=== PATIENT | female | born 1935 ===

== ENCOUNTER → 2019-11-22 | Outpatient (CLI) | payer MEDICARE, MEDICAID ==
[2019-11-22 14:11] LABS: Basophils # (auto) 0 10 ^3/uL (0-0.2); Eosinophils # (auto) 0.1 10 ^3/uL (0-0.8); Lymphocytes # (auto) 1.1 10 ^3/uL (0.4-5.4); Monocytes # (auto) 0.4 10 ^3/uL (0-1.3); Monocytes % (auto) 13.7 % (0.0-12.0); Nucleated Red Blood Cells % 0.1 %
[2019-11-22 14:14] LABS: Hematocrit 31.8 % (36.0-46.0); Hemoglobin 10.8 g/dL (12.2-16.2); Lymphocytes % (auto) 36.3 % (10.0-50.0); Mean Corpuscular Hemoglobin 35.7 pg (28.0-32.0); Mean Corpuscular Volume 104.9 fL (80.0-100.0); Neutrophils # (auto) 1.3 10 ^3/uL (1.6-8.6); Platelet Count (auto) 64 10^3/uL (140-450); Red Blood Cells 3.03 10^6/uL (4.0-5.20); Red Cell Distribution Width 15.7 % (11.8-14.3)
[2019-11-22 14:26] LABS: INR 1.4 (0.9-1.15)
[2019-11-22 14:43] LABS: Potassium 5.2 mmol/L (3.5-5.1)
[2019-11-22 14:50] LABS: Albumin 2.3 g/dL (3.4-5.0); BUN/Creatinine Ratio 23.9; Bilirubin, Total 1.7 mg/dL (0.2-1.0); Calcium 8.4 mg/dL (8.5-10.1); Total Protein 6.3 g/dL (6.4-8.2)
== END | disposition home or self-care (01) ==
LOC: LAB 13:45
PROVIDERS: ATTEND Internal Medicine
DX: C22.8 Malignant neoplasm of liver, primary, unspecified as to type (principal); M06.9 Rheumatoid arthritis, unspecified
CPT/HCPCS: 36415; 80053; 82105; 85025; 85610; 85730

== ENCOUNTER 2020-05-03 15:19 | Inpatient (IN) | payer MEDICARE, MEDICAID ==
[~2020-05-03] VITALS: Ht 139.7 cm; Wt 65.3 kg
[2020-05-03] MEDS ORDERED: SODIUM CHLORIDE 0.9% 1,000 ML IV ONE (15:30)
[2020-05-03] MEDS ORDERED: PIPERACILLIN-TAZOB 3.375GM 100 ML IV ONE (16:00)
[2020-05-03 18:38] LABS: Basophils # (auto) 0 10 ^3/uL (0-0.2); Basophils % (auto) 0.9 % (0.0-2.0); Eosinophils # (auto) 0.1 10 ^3/uL (0-0.8); Eosinophils % (auto) 1.5 % (0.0-7.0); Hematocrit 29.7 % (36.0-46.0); Hemoglobin 10.1 g/dL (12.2-16.2); Lymphocytes # (auto) 1.5 10 ^3/uL (0.4-5.4); Lymphocytes % (auto) 32.4 % (10.0-50.0); Mean Corpuscular Hemoglobin 34.5 pg (28.0-32.0); Mean Corpuscular Hgb Conc. 33.9 g/dL (32.0-36.0); Mean Corpuscular Volume 101.8 fL (80.0-100.0); Monocytes # (auto) 0.8 10 ^3/uL (0-1.3); Monocytes % (auto) 16.3 % (0.0-12.0); Neutrophils # (auto) 2.3 10 ^3/uL (1.6-8.6); Neutrophils % (auto) 48.9 % (37.0-80.0); Nucleated Red Blood Cells % 0.3 %; Platelet Count (auto) 89 10^3/uL (140-450); Red Blood Cells 2.92 10^6/uL (4.0-5.20); Red Cell Distribution Width 16.1 % (11.8-14.3); White Blood Cell 4.6 10^3/uL (4.4-10.8)
[2020-05-03 18:51] LABS: INR 1.51 (0.9-1.15); Partial Thromboplastin Time 33.6 sec (23.0-31.2)
[2020-05-03 18:56] LABS: Albumin 1.9 g/dL (3.4-5.0); BUN/Creatinine Ratio 11.1; Calcium 8.7 mg/dL (8.5-10.1)
[2020-05-03] MEDS ORDERED: NITROGLYCERIN 0.4 MG SL TAB SL PRN (19:00)
[2020-05-03] MEDS ORDERED: MORPHINE SULF INJ 2 MG/ML SYRINGE 1ML IV PRN ×2 (19:00→19:15)
[2020-05-03 19:01] LABS: Bilirubin, Total 2.6 mg/dL (0.2-1.0); Lactic Acid w/Reflex 2.9 mmol/L (0.4-2.0); Total Protein 6.3 g/dL (6.4-8.2)
[2020-05-03] MEDS ORDERED: cefTRIAXone 1GM/50ML D5W 50 ML IV ONE (19:15)
[2020-05-03] MEDS ORDERED: traMADol HCL 50 MG TAB PO PRN (19:15)
[2020-05-03] MEDS ORDERED: ONDANSETRON HCL 4 MG/2 ML VIAL IV PRN (19:15)
[2020-05-03] MEDS: FUROSEMIDE 40 MG/4 ML VIAL IV SCH (20:06)
--- NOTE | 2020-05-03 21:30 | NUR ---
Telemetry admit from ER SANGITA ALMAGUER admitted to Telemetry unit after NO SBAR received FROM ER NURSE. Report is from computer chart. Patient oriented to Srinath gongora RN, [facility] unit, 279 room, A bed, and unit policies regarding patient care and visiting hours. Patient now on continuous telemetry monitoring, tele box # 71 and telemetry reading on arrival to unit is sinus rhythm. Patient placed on bedside oxygen, weighed by bedscale and encouraged to call if they need something. All questions and concerns addressed, patient verbalized understanding. Note:
--- NOTE | 2020-05-03 21:31 | NUR ---
Belonging list: blouse/dentures full upper and lower/ pants/ sweater/ hat/ socks/ and wheel chair are physically here in patient room in 279a.
[2020-05-03] MEDS ORDERED: FAMOTIDINE 20 MG TAB PO SCH (22:00)
[2020-05-03] MEDS ORDERED: DOXYCYCLINE 100 MG TAB/CAP PO SCH (22:00)
[2020-05-03 22:09] VITALS: BP 115/51
--- NOTE | 2020-05-03 23:00 | NUR ---
Patient daughter requested that I provide pain medication to patient due to patient having pain in knee area recently. Asked patient if she has any pain in legs, knees, or anywhere. Patient verbally denies any pain, distress, or sob at this time, also denies any pain in epigastric/abdomen and never has had any pain in abdomen. Patient verbally refuses any type of pain medication at this time, per patient does not have any pain. Patient appears resting comfortably in bed with no signs of distress. Did educate patient, she does have pain medication ordered and available PRN if she has any pain with pain parameters as ordered by MD. patient verbally acknowledge education given. Call light with in reach. and educated patient on how to use call light.
[2020-05-03] MEDS: SUCRALFATE 1 GM/10 ML ORAL SUSP PO SCH (23:05)
[2020-05-03] MEDS: PANTOPRAZOLE 40 MG TAB PO SCH (23:07)
--- NOTE | 2020-05-03 23:30 | NUR ---
EGD: Patient daughter refuses to have patient proceed with EGD tomorrow as scheduled by MD Antony. Daughter wants to talk to MD Antony of EGD procedure and wants to be updated on Plan of care. Daughter states "my mom does not have pain in abdomen or lower chest area, do not know why she is having this procedure, I want to have doctor talk to me first about procedure, my mom has dementia, forgetful and is often confused". Patient daughter wanted me to explain in detail of EGD procedure, educated patient, not my scope of practice, and MD has to do that. Patient daughter verbally acknowledge education. Later daughter changed mind of procedure and wanted to proceed, then change her mind again about procedure, and now wants clarification. Will leave note on physical chart and will endorse to day RN of patient daughter does not want to proceed with procedure till she speaks to MD. Spoke to patient about EGD tomorrow and about pain in abdomen. Patient verbally stated "I did not speak to any doctor about any procedures today and no I do not have any pain in my abdomen, I dont know what your talking about". Will continue to monitor patient. bed alarm on, brakes on, call light within reach, and charge made aware.
--- NOTE | 2020-05-03 23:30 | NUR ---
Vaccinations/code status: Patient requested to be full code, did confirm with daughter patient is full code. patient and daughter refused pneumonia and flu vaccination at this time, education given. daughter/patient not aware of past vaccination history.
--- NOTE | 2020-05-03 23:30 | NUR ---
per patient daughter, patient has been discharged from hospital in last thirty days, per protocol, mrsa swab ordered.
[2020-05-03 23:47] LABS: Urine Bacteria FEW /hpf (None Seen); Urine Blood TRACE /uL (Negative); Urine Specific Gravity 1.006 (1.001-1.035); Urine WBC 1 /hpf (0 - 5)
[2020-05-04] MEDS ORDERED: METO-169 PO (02:56)
[2020-05-04] MEDS ORDERED: FOLI1TAB6 PO (02:56)
[2020-05-04] MEDS ORDERED: MAGN400T40 PO (02:56)
[2020-05-04] MEDS ORDERED: LACT10PA2 PO (02:56)
[2020-05-04] MEDS ORDERED: NYS5LQ MT (02:56)
[2020-05-04] MEDS ORDERED: SPIR50TA5 PO (02:56)
[2020-05-04] MEDS ORDERED: FURO40TA4 PO (02:56)
[2020-05-04] MEDS ORDERED: CALCTAB25 PO (02:56)
[2020-05-04 05:16] VITALS: BP 106/52
[2020-05-04] MEDS: SUCRALFATE 1 GM/10 ML ORAL SUSP PO SCH ×4 (06:59→22:00)
[2020-05-04] MEDS: SPIRONOLACTONE 25 MG TAB PO SCH ×2 (06:59→18:00)
[2020-05-04] MEDS: FUROSEMIDE 40 MG/4 ML VIAL IV SCH ×2 (06:59→18:00)
[2020-05-04 07:01] LABS: Eosinophils # (auto) 0.1 10 ^3/uL (0-0.8); Monocytes # (auto) 0.6 10 ^3/uL (0-1.3); Neutrophils # (auto) 2.1 10 ^3/uL (1.6-8.6); Nucleated Red Blood Cells % 0.3 %
[2020-05-04 07:05] LABS: Basophils # (auto) 0 10 ^3/uL (0-0.2); Basophils % (auto) 1.1 % (0.0-2.0); Eosinophils % (auto) 2.1 % (0.0-7.0); Hematocrit 27.1 % (36.0-46.0); Hemoglobin 9.4 g/dL (12.2-16.2); Lymphocytes # (auto) 1.2 10 ^3/uL (0.4-5.4); Mean Corpuscular Hgb Conc. 34.5 g/dL (32.0-36.0); Mean Corpuscular Volume 101.4 fL (80.0-100.0); Monocytes % (auto) 14.3 % (0.0-12.0); Neutrophils % (auto) 53.5 % (37.0-80.0); Platelet Count (auto) 82 10^3/uL (140-450); Red Blood Cells 2.67 10^6/uL (4.0-5.20); Red Cell Distribution Width 16.1 % (11.8-14.3)
[2020-05-04 07:21] LABS: Albumin 1.6 g/dL (3.4-5.0); Potassium 4.1 mmol/L (3.5-5.1)
[2020-05-04 07:23] LABS: BUN/Creatinine Ratio 12.8; Bilirubin, Total 2.3 mg/dL (0.2-1.0); Calcium 8.6 mg/dL (8.5-10.1); Total Protein 5.1 g/dL (6.4-8.2)
--- NOTE | 2020-05-04 07:30 | NUR ---
Opening Shift Note RECEIVED REPORT FROM NOC RN. Assumed care of patient, awake. No S/S of distress/SOB or pain. BED IN LOWEST, LOCKED POSITION WITH SIDERAILS UP x2 AND CALL LIGHT WITHIN REACH. Instructed on POC and to call for assist PRN, will continue to monitor for changes Q1hr and PRN.
--- NOTE | 2020-05-04 07:40 | NUR ---
PROVIDED REPORT TO HAKEEM HAGEN. ENDORSED EGD PROCEDURE, AND CLARIFICATION WITH MD/DAUGHTER/AND PATIENT.
[2020-05-04 08:23] VITALS: BP 107/56
[2020-05-04] MEDS ORDERED: POTASSIUM CHLORIDE 20 MEQ, LIDOCAINE 1% (LOCAL ANESTH.) 2 ML in SODIUM CHL 0.9% 100 ML IV ONE (08:30)
[2020-05-04] MEDS ORDERED: MAGNESIUM SULFATE 1GM/100ML 100 ML IV ONE (08:30)
[2020-05-04] MEDS ORDERED: NALOXONE HCL 0.4 MG/ML VIAL ONE (08:40)
[2020-05-04] MEDS ORDERED: SODIUM CHLORIDE LOCK 10 ML ONE (08:40)
[2020-05-04] MEDS ORDERED: FLUMAZENIL 0.1 MG/ML INJ 10ML MDV IV ONE (08:40)
[2020-05-04] MEDS ORDERED: LIDOCAINE VISCOUS 2% 15ML UD ONE (08:40)
[2020-05-04] MEDS ORDERED: diphenhdrAMINE HCL 50 MG/1 ML VL ONE (08:40)
[2020-05-04] MEDS ORDERED: MIDAZOLAM HCL 5 MG/ML-1ML VIAL ONE (08:40)
[2020-05-04] MEDS ORDERED: fentaNYL CITRATE 100 MCG/2 ML VL ONE (08:41)
--- NOTE | 2020-05-04 09:20 | NUR ---
DR. CHAPPELL ON UNIT. CONFIRMED CONSENT FOR EGD PROCEDURE WITH PATIENT'S DAUGHTER/POA VIA TELEPHONE WITH HAKEEM KAM.
--- NOTE | 2020-05-04 09:32 | NUR ---
PATIENT TAKEN DOWN TO PRE-OP.
[2020-05-04] MEDS: LACTULOSE 20Gm/30ML SOLN PO SCH ×2 (10:00→22:01)
[2020-05-04] MEDS: PANTOPRAZOLE 40 MG TAB PO SCH ×2 (10:00→22:00)
--- NOTE | 2020-05-04 10:30 | NUR ---
HOLD P.T. TODAY. PATIENT WENT DOWN FOR A PROCEDURE.
--- NOTE | 2020-05-04 11:55 | NUR ---
WOUND CARE NOTE: Wound care in to see patient per wound care request regarding low Sinan score of 12, putting patient high risk for skin breakdown. Patient is 84 years old female with admitting diagnosis of Abdominal Pain, Anasarca. Patient is resting in bed in Rm. 279A. Patient's eyes are closed, respirations even and unlabored. Patient appears to be in no pain using Whitney Norris Faces Pain Scale. Skin/wound assessment done with the assistance of patient's nurse, HAKEEM Wood. No open wound noted, no pressure injury noted. Patient is receiving BID/PRN cleaning and application of Barrier cream to sacral, buttocks as preventative. Repositioned patient for comfort facing her left , redistributed pressure points with pillows. Patient tolerated well. HAKEEM Mo at bedside. tech at bedside. RECOMMENDATION: Nursing to continue with BID/PRN cleaning and application of Barrier cream to sacral, buttocks as preventative, Dietary consult, frequent turning and repositioning schedule as condition permits, redistribute pressure points with pillows, elevate heels on pillows, continue monitoring by wound care while patient's Sinan score is <18. Addendum: 05/04/20 at 1408 by Nahomi Wooten RN Amended: Links added.
[2020-05-04 12:06] VITALS: BP 96/41
--- NOTE | 2020-05-04 12:34 | NUR ---
Nutrition Consult Consider initiating TF of Jevity 1.2 at a goal rate of 40 ml/hr per MD approval Est energy needs 4999-2827 kcal (20-23 kcal/kg BW 61.7kg) Est protein needs 40-52g (1-1.3g/kg IBW 40kg) Will monitor and reassess prn. Addendum: 05/04/20 at [address] Amended: Links added.
--- NOTE | 2020-05-04 14:25 | NUR ---
Assessment Patient is an 84-year-old female. Assessment was completed with patient daughter Lexi . Per Sherice prior to admission patient lived home with her and functioned with assistance. Per Sherice she helps patient with her ADLs. Per patient she will return home to her prior living arrangements post discharge. Advised Sherice there is a social service consult for home health with [facility]. Per Sherice she would like patient to go on hospice with [facility]. Informed Sherice I will inform MD. Informed Sherice she has the right to participate in all discharge planning. Sherice verbalized understanding and agreed to discharge plan. Informed Dr. Danni CHAVEZ patient family would like patient to be discharge on hospice. MD to follow up with family. Per social service consult for hospice. Faxed clinical information to [facility]. Per Mariah with [facility] patient has been accepted and service to start upon /. [facility] will transport patient home. Per patient to be discharge on Thursday05/04/20. Addendum: 05/04/20 at 1435 by NICOLE GARCIA Amended: Links added.
--- NOTE | 2020-05-04 15:15 | NUR ---
CALLED PHARMACY REGARDING POTASSIUM. PHARMACY ADVISED IT WOULD BE SENT UP.
--- NOTE | 2020-05-04 16:20 | NUR ---
CALLED PHARMACY REGARDING POTASSIUM. ADVISED IT WAS BEING MIXED.
[2020-05-04 16:30] VITALS: BP 124/58
--- NOTE | 2020-05-04 17:16 | NUR ---
SPOKE TO [employer] SALES REPRESENTATIVE REGARDING POTASSIUM. TECH ADVISED SHE WOULD CHECK ON IT WHEN SHE GOT BACK TO PHARMACY.
--- NOTE | 2020-05-04 17:30 | NUR ---
ADVISED BY [facility] [facility] THAT POTASSIUM HAD BEEN CANCELLED FOR THIS PATIENT.
--- NOTE | 2020-05-04 18:15 | NUR ---
CALLED PHARMACY REGARDING POTASSIUM. ADVISED BY PHARMACIST THAT THEY WOULD MIX IT AND SEND IT UP.
--- NOTE | 2020-05-04 19:45 | NUR ---
Opening Shift Note Assumed care of patient, awake and alert. No S/S of distress/SOB or pain. Instructed on POC and to call for assist PRN, will continue to monitor for changes Q1hr and PRN. Bed in low position and call light within reach. fall precautions in place
[2020-05-04] MEDS ORDERED: cefTRIAXone 1GM/50ML D5W 50 ML IV SCH (21:00)
[2020-05-04 22:00] VITALS: BP 114/60
[2020-05-05 05:00] VITALS: BP 125/54
[2020-05-05] MEDS: FUROSEMIDE 40 MG/4 ML VIAL IV SCH (05:42)
[2020-05-05] MEDS: SPIRONOLACTONE 25 MG TAB PO SCH (05:43)
[2020-05-05] MEDS: SUCRALFATE 1 GM/10 ML ORAL SUSP PO SCH ×2 (06:23→11:30)
[2020-05-05 06:26] LABS: Basophils # (auto) 0 10 ^3/uL (0-0.2); Eosinophils # (auto) 0.1 10 ^3/uL (0-0.8); Eosinophils % (auto) 2.4 % (0.0-7.0); Lymphocytes # (auto) 1.6 10 ^3/uL (0.4-5.4); Monocytes # (auto) 0.6 10 ^3/uL (0-1.3); Neutrophils # (auto) 2.1 10 ^3/uL (1.6-8.6); White Blood Cell 4.4 10^3/uL (4.4-10.8)
[2020-05-05 06:34] LABS: Hematocrit 26.1 % (36.0-46.0); Hemoglobin 8.8 g/dL (12.2-16.2); Lymphocytes % (auto) 35.9 % (10.0-50.0); Mean Corpuscular Hemoglobin 34.3 pg (28.0-32.0); Mean Corpuscular Hgb Conc. 33.9 g/dL (32.0-36.0); Mean Corpuscular Volume 101.3 fL (80.0-100.0); Monocytes % (auto) 12.8 % (0.0-12.0); Neutrophils % (auto) 47.9 % (37.0-80.0); Nucleated Red Blood Cells % 0.6 %; Platelet Count (auto) 73 10^3/uL (140-450); Red Blood Cells 2.58 10^6/uL (4.0-5.20); Red Cell Distribution Width 16.4 % (11.8-14.3)
--- NOTE | 2020-05-05 06:39 | NUR ---
patient rounds patient resting in bed denies sob distress or pain. Iv is intact and patent. Stevenson catheter is patent and draining. call light within reach and fall precautions in place
[2020-05-05 06:41] LABS: INR 1.58 (0.9-1.15)
[2020-05-05 07:03] LABS: Potassium 4.3 mmol/L (3.5-5.1)
[2020-05-05 07:07] LABS: Albumin 1.5 g/dL (3.4-5.0); BUN/Creatinine Ratio 11.9; Calcium 8.3 mg/dL (8.5-10.1)
[2020-05-05 07:10] LABS: Total Protein 5.2 g/dL (6.4-8.2)
--- NOTE | 2020-05-05 07:24 | NUR ---
REPORT GIVEN TO DAYSHIFT RN PATIENT DENIES SOB DISTRESS OR PAIN
--- NOTE | 2020-05-05 08:00 | NUR ---
Opening Shift Note Assumed care of patient, awake, alert and oriented X2, to self and surroundings. Patient is Japanese speaking only, translation provided by CHING Mak. Tele 71, sinus rhythm @ 84 bpm. IV to left hand, 22 gauge, patent and saline locked. No S/S of distress/SOB or pain. Urethral Stevenson catheter draining clear, yellow urine to gravity. Bilateral SCD'c in place. Instructed on POC and to call for assist PRN, verbalized understanding. bed locked, in lowest position, call light within reach, will continue to monitor for changes Q1hr and PRN.
[2020-05-05 08:46] VITALS: BP 119/59
[2020-05-05] MEDS: LACTULOSE 20Gm/30ML SOLN PO SCH (09:28)
[2020-05-05] MEDS: PANTOPRAZOLE 40 MG TAB PO SCH (09:29)
--- NOTE | 2020-05-05 09:50 | NUR ---
[facility] Call received from Mariah with [facility]. Updated on patient's plan of care, verbalized understanding.
[2020-05-05 12:39] VITALS: BP 152/98
[2020-05-05 13:28] VITALS: BP 119/59
--- NOTE | 2020-05-05 14:24 | NUR ---
[facility] at bedside to transport patient home, [facility] to assume care. No distress noted upon departure. Patient transported via gurney with all personal belongings.
== END 2020-05-05 14:30 | disposition hospice, home (50) | DRG 432 ==
LOC: ER 15:19 → TELE 15:20 → TELE-WESTW 21:30
PROVIDERS: ADMIT Internal Medicine; ATTEND Internal Medicine
PROC: 0DJ08ZZ Inspection of Upper Intestinal Tract, Via Natural or Artificial Opening Endoscopic (ICD-10-PCS; principal; 2020-05-04 09:50)
DX: K74.60 Unspecified cirrhosis of liver (principal); I50.43 Acute on chronic combined systolic (congestive) and diastolic (congestive) heart failure; I13.0 Hypertensive heart and chronic kidney disease with heart failure and stage 1 through stage 4 chronic kidney disease, or unspecified chronic kidney disease; D68.4 Acquired coagulation factor deficiency; E87.1 Hypo-osmolality and hyponatremia; N17.9 Acute kidney failure, unspecified; E44.1 Mild protein-calorie malnutrition; K29.80 Duodenitis without bleeding; K29.70 Gastritis, unspecified, without bleeding; D63.8 Anemia in other chronic diseases classified elsewhere; E66.9 Obesity, unspecified; F03.90 Unspecified dementia, unspecified severity, without behavioral disturbance, psychotic disturbance, mood disturbance, and anxiety; Z66 Do not resuscitate; Z20.828 Contact with and (suspected) exposure to other viral communicable diseases; N18.30 Chronic kidney disease, stage 3 unspecified; Z51.5 Encounter for palliative care; Z83.3 Family history of diabetes mellitus; Z85.05 Personal history of malignant neoplasm of liver; Z88.5 Allergy status to narcotic agent; Z68.33 Body mass index [BMI] 33.0-33.9, adult
CPT/HCPCS: 36415; 43239; 71045; 76705; 80053; 81001; 82105; 82140; 83605; 83735; 83880; 84443; 84484; 85025; 85610; 85730; 86677; 86850; 86900; 86901; 87040; 87081; 93005; 93306; 93970; 96365; 96366; 96368; G0378; J0696; J2001; J2250; J2543